=== PATIENT | male | born 1990 | race Caucasian/White ===

== ENCOUNTER 2017-03-05 20:44 | Emergency (ER) | payer SELFPAY ==
[~2017-03-05] VITALS: Ht 182.9 cm; Wt 80.7 kg
[~2017-03-05 20:44] MED LIST: DARVOCET-N 1001 EACH PO; MOTRIN600 MG PO; VOLTAREN75 MG PO
[2017-03-05 21:02] VITALS: BP 145/83
[2017-03-05] MEDS ORDERED: IBUPROFEN800 MG PO (21:06)
[2017-03-05] MEDS ORDERED: AUGMENTIN1 TA1 PO (21:06)
--- NOTE | 2017-03-05 21:07 | Urgent Treatment Center Report ---
History of Present Issue Date/Time Seen by Provider 03/05/172054 Visit Reason Pt arrived:Walked Presenting Problem:PT HAS TOOTH PAIN ON THE RT TOP BACK TOOTH. TOOTH BROKE OFF THIS AM Location if Accident: Onset of symptoms date/time:/ or onset unknown for:MEDICAL HX UNKNOWN Have you (or family members/close friends) recently traveled outside the [place]? N If Yes, where/when: Have you had exposure to infectious disease within the past month? TB? Other? Specify: Patient states that earlier this morning his tooth on the top right in the back broke in half at the gum State that he has been trying to fight it but now he is having some pain in the tooth. States that his dentist is closed right now and was unable to get into anyone today State that his gum area is sore and he eat today and got some food in it and afraid it is going to get infected ALLERGIES Coded Allergies: No Known Allergies (03/05/17) History Medical History General Angina: No [place]: No Hypertension? No Hyperlipidemia? No CHF? No COPD? No Asthma? No CVA? No Seizures? No Diabetes? No GB Disease: No MRSA? No TB? No Cancer? No Immunization HX DT/Tetanus 1-4 YRS Surgical Hx Previous Surgery?Y BILAT INGUINAL HERNIAS Social History Smoking Hx Smoker: Current Every Day Smoker Tobacco: Yes Type Cigarettes Packs/day < 1 Pack Alcohol Alcohol: No Review of Systems All Other Systems Reviewed and Negative Comment Dental pain after back tooth on top right broke off this morning Physical Exam Vital Signs Vital Signs Date Time Temp Pulse Resp B/P Pulse O2 O2 Flow FiO2 Ox Delivery Rate 03/05 2102 97.9 98 20 145/83 98 03/05 2100 20 03/05 2050 97.9 98 20 145/83 98 General Appearance normal appearance, WD/WN, no apparent distress Ear, Nose, Throat dental caries, back tooth on top right broke in half with piece of tooth level at the gum gum area red Respiratory Status Yes: trachea midline, chest symmetrical, non tender chest. No: respiratory distress. 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 No Results/Orders Current Medication Orders Sig/Marian Start time Last Medication Dose Route Stop Time Status Admin Ketorolac 60 MG ONCE ONE 03/05 2100 DC 03/05 Tromethamine IM 03/05 Ketorolac 0 .STK-MED ONE 03/05 2056 DC Tromethamine .ROUTE Lidocaine HCl 0 .STK-MED ONE 03/05 2048 DC .ROUTE Departure Departure Time of Disposition 2058 Disposition DC Home or Self Care(routine) Clinical Impression Primary Impression: Pain, dental Condition STABLE Referrals RAVEN COELLO DMD,RAFAEL BEATTY,ROS Lopez DMD,LUC Mathews,RONIT TUTTLE Patient Instructions DI for Dental Pain, DI for Tooth Decay Additional Instructions In the morning call local dentists and try to get in for appointment to have tooth extracted Use dental balls as advised in the [facility] tonight Take medication as prescribed and be careful eating FOllow up with family doctor if needed Discharge Counseling Counseled pt/family regarding diagnosis, medications/RX, home care, follow up needs Prescriptions Current Visit Scripts Ibuprofen (Ibuprofen 800MG) 800 MG PO QIDP PRN pain #30 TAB AMOXICILLIN/POTASSIUM CLAV (Augmentin 500-125 Tablet) 1 TAB PO BID #14 TAB at 2106
== END 2017-03-05 21:08 | disposition home or self-care (01) ==
LOC: UTC 20:44
DX: K02.9 Dental caries, unspecified (principal); Z72.0 Tobacco use

== ENCOUNTER 2017-03-26 22:38 | Emergency (ER) | payer SELFPAY ==
[~2017-03-26] VITALS: Ht 182.9 cm; Wt 72.6 kg
[~2017-03-26 22:38] MED LIST changes: +AUGMENTIN1 TA1 PO; +IBUPROFEN800 MG PO
--- NOTE | 2017-03-26 22:49 | Emergency Room Report ---
History of Present Illness Time Seen by [id number] Presenting Problem in Triage Pt arrived:Walked Presenting Problem:BLOOD IN STOOL SINCE THIS MORNING. Onset of symptoms date/time:/ or onset unknown for:MEDICAL HX UNKNOWN Treatment Prior to Arrival: [employer] Provided by: Sepsis Risk Assessment: Temp: 98.8 B/P: 146/86 MAP: 106 Pulse: 74 Resp: 20 Recent fever? N Clinical Suspician of Infection? N Mental Status: 1 - Regular (Normal Baseline) Sepsis Risk:Low Sepsis Risk Have you (or family members/close friends) recently traveled outside the [place]? N If Yes, where/when: Have you had exposure to infectious disease within the past month? N TB? Other? Specify: Source patient, RN notes reviewed, family, old records Exam Limitations no limitations Comment painless brrb which started today with no fever or rash and no diarrhea or abd pain Cardiac Chest Pain Chest pain indicative of cardiac No Timing/Duration this evening Severity moderate ALLERGIES Coded Allergies: No Known Allergies (03/05/17) Home Medications Active Scripts Ibuprofen (Ibuprofen 800MG) 800 MG PO QIDP PRN pain #30 TAB Prov: 03/05/17 History Medical History General CAD? No Angina: No [place]: No Hypertension? No Hyperlipidemia? No CHF? No DVT? No PE? No COPD? No Asthma? No Anemia? No GERD? No Gastric ulcers? No GI Bleed? No Hernia? Yes Thyroid Problems? No Hypothyroidism? No CVA? No Seizures? No Diabetes? No Renal Insuffiency? No End Stage Renal Disease? No UTI? No Stones? No BPH? No GB Disease: No Nephritic Syndrome? No Asplenia? No Hepatitis? No Sickle Cell Disease? No Arthritis? No Migraines? No Cataracts? No Glaucoma? No MRSA? No HIV? No TB? No Anxiety? No Depression? No Cancer? No More? No Immunization Hx DT/Tetanus 1-4 YRS Surgical Hx Previous Surgery?Y BILAT INGUINAL HERNIAS Social History Smoking Hx Smoker: Current Every Day Smoker Tobacco: Yes Type Cigarettes Packs/day < 1 Pack Are you/the child exposed to second-hand smoke: Yes Alcohol Alcohol: No Drugs none Review of Systems All Other Systems Reviewed and Negative Constitutional denies fever Eyes denies drainage ENT denies: ear discharge, epistaxis, throat pain. Respiratory denies cough, denies shortness of breath, denies wheezing Cardiovascular denies chest pain, denies palpitations, denies syncope Gastrointestinal see HPI, denies abdominal pain, denies diarrhea, denies vomiting, other Genitourinary denies: dysuria, frequency, hesitancy, hematuria. Musculoskeletal denies back pain, denies neck pain Skin denies rash Psychiatric/Neurological denies headache, denies seizure Physical Exam Vital Signs Vital Signs Date Time Temp Pulse Resp B/P Pulse O2 O2 Flow FiO2 Ox Delivery Rate 03/261 98.8 74 20 146/86 99 - WBC >12,000 or <4,000 or 10% bands? 2 or more SIRS Criteria Met? B/P:146/86 MAP:106 Creatinine >2.0? UA output<0.5ml/kg/hr for 2 hrs? Platelet count >100,000? Lactate >2.0mmol/1? INR >1.2 or PTT > than 60 sec? Evidence of Organ Dysfunction? Provider documented clinical suspician of infection? N Sepsis Criteria Count: 1 Sepsis Risk: Low Sepsis Risk General Appearance no apparent distress Eye Exam - bilateral eye PERRL, bilateral eye EOMI Ear, Nose, Throat normal ENT inspection Neck supple Respiratory Status No: respiratory distress. 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 No Results/Orders Laboratory Tests 03/26/172247: Sodium 138, Potassium 3.5, Chloride 101, Carbon Dioxide 31, BUN 11, Creatinine 0.8, Estimated Creat Clear 142, Estimated GFR (MDRD) 116, Glucose 115 H, Calcium 9.2, Total Bilirubin 0.3, AST 36, ALT 63, Alkaline Phosphatase 56, Total Protein 7.4, Albumin 4.0, Globulin 3.4 H, Albumin/Globulin Ratio 1.2, WBC 8.4, RBC 5.04, Hgb 16.0, Hct 45.3, MCV 89.8, RDW 12.9, Plt Count 207, MPV 8.4, Gran % 50.5, Gran # 4.3, Lymphocytes % 42.4, Monocytes % 5.2, Eosinophils % 1.7, Basophils % 0.3, Lymphocytes # 3.6, Monocytes # 0.4, Eosinophils # 0.1, Basophils # 0.0, PUBS MCHC 35.3, ESR Pending, MCH 31.7 H, Stool Occult Blood POSITIVE Orders Procedure Date/time Status DIET-NOTHING BY MOUTH 03/[address] ABD & PELVIS W/O CONTRAST 03/[address] SCAN REQ 03/26 2247 Complete SED RATE 03/26 2247 Active COMPLETE METABOLIC PANEL 03/26 2247 Complete CBC WITH AUTO DIFF 03/26 2247 Active STOOL OCCULT BLOOD 03/26 2246 Complete XRAY/CT/US XRAY/CT/US CT abdomen, pelvis CT interpretation by discussed w/radiologist Time results known: 2323 CT Results abnormal (see report) Departure Departure Time of Disposition 2337 Disposition DC Home or Self Care(routine) Clinical Impression Primary Impression: Lower GI bleeding Secondary Impressions: Colitis Condition STABLE Patient Instructions DI for Colitis Additional Instructions see pcp for follow up and colonoscopy Discharge Counseling Counseled pt/family regarding diagnosis, test results, medications/RX, follow up needs Prescriptions Current Visit Scripts Ciprofloxacin HCl (Cipro 500MG TAB) 500 MG PO BID #14 TAB Metronidazole (Flagyl) 500 MG PO TID #30 TAB ED Critical Care Critical Care No at 2334
[2017-03-26 23:19] LABS: LYMPH # 3.6 K/mm3 (0.7-4.5); LYMPH % 42.4 % (10-50)
[2017-03-26 23:29] LABS: STOOL OCCULT BLOOD POSITIVE (NEG)
[2017-03-26] MEDS ORDERED: FLAGYL500 M1 PO (23:39)
[2017-03-26] MEDS ORDERED: CIPRO 500MG TA500 MG PO (23:39)
[2017-03-26 23:48] VITALS: BP 126/72
--- NOTE | 2017-03-27 05:38 | RADIOLOGY REPORT PS360 ---
CT ABD PELVIS W/O CONTRAST CLINICAL INDICATION: ABD PAIN/BLOOD IN STOOL ORDERING PHYSICIAN: Adebayo Thakur MD PATIENT AGE: 26 years COMPARISON: None TECHNIQUE: Axial images obtained with sagittal and coronal reformats. PROCEDURE: Oral Contrast: None IV Contrast: None . FINDINGS: Lung bases are clear. The liver, gallbladder, spleen, adrenal glands, pancreas, and kidneys and ureters have an unremarkable appearance. No intestinal obstruction or free air. No evidence of appendicitis or diverticulitis. There is mild scattered wall thickening versus nondistention of the rectosigmoid colon. There are multiple unopacified bowel loops present within the abdomen/pelvis which could obscure or mimic pathology. If symptoms persists, consider repeating exam with IV and oral contrast administration. No acute bony anomalies. IMPRESSION: 1. Mild scattered thickening versus nondistention of the rectosigmoid colon. Colitis/proctitis is a consideration. 2. There are multiple unopacified bowel loops present within the abdomen/pelvis which could obscure or mimic pathology. If symptoms persists, consider repeating exam with IV and oral contrast administration 3. Otherwise negative
== END 2017-03-26 23:48 | disposition home or self-care (01) ==
LOC: ER 22:38
PROVIDERS: Emergency Medicine
DX: K92.2 Gastrointestinal hemorrhage, unspecified (principal); K52.9 Noninfective gastroenteritis and colitis, unspecified
CPT/HCPCS: G0328

== ENCOUNTER 2017-04-24 19:12 | Emergency (ER) | payer SELFPAY ==
[~2017-04-24] VITALS: Ht 182.9 cm; Wt 72.6 kg
[~2017-04-24 19:12] MED LIST changes: +CIPRO 500MG TA500 MG PO; +FLAGYL500 M1 PO
--- NOTE | 2017-04-24 19:33 | Urgent Treatment Center Report ---
History of Present Issue Date/Time Seen by Provider 04/24/171928 Visit Reason Pt arrived:Walked Presenting Problem:PT COMPLAINS OF SORE THROAT ONLY THAT STARTED 1 DAY AGO. THROAT IS RED. Location if Accident: Onset of symptoms date/time:/ or onset unknown for:MEDICAL HX UNKNOWN Have you (or family members/close friends) recently traveled outside the [place]? N If Yes, where/when: Have you had exposure to infectious disease within the past month? TB? Other? Specify: Patient states that he began having sore throat yesterday that has continued to get worse States that his throat has become more and more sore and irritated and joseph and feels scratchy when he swallows. States that he has not been running a fever and unsure if he may or may not have been exposed to strep throat ALLERGIES Coded Allergies: No Known Allergies (03/05/17) History Medical History General CAD? No Angina: No [place]: No Hypertension? No Hyperlipidemia? No CHF? No DVT? No PE? No COPD? No Asthma? No Anemia? No GERD? No Gastric ulcers? No GI Bleed? No Hernia? Yes Thyroid Problems? No Hypothyroidism? No CVA? No Seizures? No Diabetes? No Renal Insuffiency? No UTI? No Stones? No BPH? No GB Disease: No Nephritic Syndrome? No Asplenia? No Hepatitis? No Sickle Cell Disease? No Arthritis? No Migraines? No Cataracts? No Glaucoma? No MRSA? No HIV? No TB? No Anxiety? No Depression? No Cancer? No More? No Immunization HX DT/Tetanus 1-4 YRS Surgical Hx Previous Surgery?Y BILAT INGUINAL HERNIAS Social History Smoking Hx Smoker: Current Every Day Smoker Tobacco: Yes Type Cigarettes Packs/day < 1 Pack Alcohol Alcohol: No Review of Systems All Other Systems Reviewed and Negative ENT throat pain, throat swelling. Physical Exam Vital Signs Vital Signs Date Time Temp Pulse Resp B/P Pulse O2 O2 Flow FiO2 Ox Delivery Rate 04/24 2002 98.4 98 18 135/86 99 04/24 1927 98.4 98 18 135/86 99 General Appearance normal appearance, WD/WN, no apparent distress Ear, Nose, Throat THroat red, irritated drainage noted Respiratory Status Yes: trachea midline, chest symmetrical, non tender chest. No: respiratory distress. 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 No Results/Orders Laboratory Tests 04/24/171924: Group A Strep Screen NOT DETECTED Orders Procedure Date/time Status [facility] STREP SCREEN 04/24 1926 Complete Departure Departure Time of Disposition 2002 Disposition DC Home or Self Care(routine) Clinical Impression Primary Impression: Viral upper respiratory illness Condition STABLE Patient Instructions DI for Viral Upper Respiratory Infection -- Adult, Sore Throat Additional Instructions * Monitor Temp. Tylenol and/or Ibuprofen as needed. ER if fever is no less than 101 despite alternating Tylenol and Ibuprofen * Encourage fluids, water, Gatorade, powerade, pedialyte if /toddler/or child * Warm salt water gargles for throat irritation *Warm fluids *Sore throat lozenges *Sleep elevated Discharge Counseling Counseled pt/family regarding diagnosis, test results, medications/RX, home care, follow up needs at 2003
--- NOTE | 2017-04-24 19:33 | Urgent Treatment Center Report ---
History of Present Issue Date/Time Seen by Provider 04/24/171928 Visit Reason Pt arrived:Walked Presenting Problem:PT COMPLAINS OF SORE THROAT ONLY THAT STARTED 1 DAY AGO. THROAT IS RED. Location if Accident: Onset of symptoms date/time:/ or onset unknown for:MEDICAL HX UNKNOWN Have you (or family members/close friends) recently traveled outside the [place]? N If Yes, where/when: Have you had exposure to infectious disease within the past month? TB? Other? Specify: Patient states that he began having sore throat yesterday that has continued to get worse States that his throat has become more and more sore and irritated and joseph and feels scratchy when he swallows. States that he has not been running a fever and unsure if he may or may not have been exposed to strep throat ALLERGIES Coded Allergies: No Known Allergies (03/05/17) History Medical History General CAD? No Angina: No [place]: No Hypertension? No Hyperlipidemia? No CHF? No DVT? No PE? No COPD? No Asthma? No Anemia? No GERD? No Gastric ulcers? No GI Bleed? No Hernia? Yes Thyroid Problems? No Hypothyroidism? No CVA? No Seizures? No Diabetes? No Renal Insuffiency? No UTI? No Stones? No BPH? No GB Disease: No Nephritic Syndrome? No Asplenia? No Hepatitis? No Sickle Cell Disease? No Arthritis? No Migraines? No Cataracts? No Glaucoma? No MRSA? No HIV? No TB? No Anxiety? No Depression? No Cancer? No More? No Immunization HX DT/Tetanus 1-4 YRS Surgical Hx Previous Surgery?Y BILAT INGUINAL HERNIAS Social History Smoking Hx Smoker: Current Every Day Smoker Tobacco: Yes Type Cigarettes Packs/day < 1 Pack Alcohol Alcohol: No Review of Systems All Other Systems Reviewed and Negative ENT throat pain, throat swelling. Physical Exam Vital Signs Vital Signs Date Time Temp Pulse Resp B/P Pulse O2 O2 Flow FiO2 Ox Delivery Rate 04/24 2002 98.4 98 18 135/86 99 04/24 1927 98.4 98 18 135/86 99 General Appearance normal appearance, WD/WN, no apparent distress Ear, Nose, Throat THroat red, irritated drainage noted Respiratory Status Yes: trachea midline, chest symmetrical, non tender chest. No: respiratory distress. 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 No Results/Orders Laboratory Tests 04/24/171924: Group A Strep Screen NOT DETECTED Orders Procedure Date/time Status [facility] STREP SCREEN 04/24 1926 Complete Departure Departure Time of Disposition 2002 Disposition DC Home or Self Care(routine) Clinical Impression Primary Impression: Viral upper respiratory illness Condition STABLE Patient Instructions DI for Viral Upper Respiratory Infection -- Adult, Sore Throat Additional Instructions * Monitor Temp. Tylenol and/or Ibuprofen as needed. ER if fever is no less than 101 despite alternating Tylenol and Ibuprofen * Encourage fluids, water, Gatorade, powerade, pedialyte if /toddler/or child * Warm salt water gargles for throat irritation *Warm fluids *Sore throat lozenges *Sleep elevated Discharge Counseling Counseled pt/family regarding diagnosis, test results, medications/RX, home care, follow up needs at 2003
[2017-04-24 20:02] VITALS: BP 135/86
== END 2017-04-24 20:05 | disposition home or self-care (01) ==
LOC: UTC 19:12
DX: J06.9 Acute upper respiratory infection, unspecified (principal); Z72.0 Tobacco use